=== PATIENT | female | born 1955 | race Caucasian/White ===

== ENCOUNTER 2021-02-26 13:26 | Observation (INO) | payer MEDICARE ==
[~2021-02-26] VITALS: Ht 159.4 cm; Wt 98.5 kg
[2021-02-26] VITALS (10 sets, daily range): BP systolic 129–146; BP diastolic 64–82
[~2021-02-26 13:26] MED LIST: ACHD5005 PO; APPLE CIDER VINEGAR PO; ASP81CT PO; BUTA-234 PO; CALC-20 PO; CHLOR PO; CHOL10002 PO; CLR7.5T PO; MUPI22OI TP; OMEP40CA36 PO; TOPI50TA2 PO
--- OUTSIDE RECORDS SUMMARY | 2021-02-26 13:31 | XMS REPORT ---
Author Author Mala Salmeron [facility] Address [address] [place] [id number] Care Team Providers Care Antique Repairer Name Role Phone Ellis Salmeron PCP Cecy Adame PreferredProvider Allergies and Adverse Reactions Name Reaction Notes erythromycin ethylsuccinate vomiting Plan of Treatment Planned Activity Comments Planned Date Planned Time Plan/Goal ABDOMEN ONE VIEW 05/09/2021 12:00 AM Medications Active Name Start Date Estimated Completion Date SIG Co mments Calcium 600 + D(3) 600 mg calcium- 200 unit oral capsule take 2 capsules by oral route daily Vitamin D3 5,000 unit oral tablet take 1 tablet by oral route daily Claritin-D 24 Hour 10-240 mg oral tablet extended release 24 hr take 1 tablet by oral route once daily magnesium 200 mg oral tablet take 2 table ts by oral route daily Flonase Allergy Relief 50 mcg/actuation nasal spray,suspension spray 1 - 2 sprays (50 - 100 mcg) in each nostril by intranasal route once daily as needed Fish, Flax andBorage Oil(Prim) 400-400-200 mg oral capsule take 1 capsule by oral route daily CoQ-10 100 mg oral capsule take 1 capsule by oral route daily hydroxyzine pamoate 25 mg oral capsule 10/18/2018 TAKE 1 TO 2 CAPSULES BY MOUTH NEEDED FOR SEVERE STRESS/HEADACHE Zinc one tablet by oral route onc e daily Vitamin C 500 mg oral tablet take 1 table t by oral route daily triamcinolone acetonide 0.025 % topical cream 10/25/2019 apply a thin layer to the affected area(s) by topical route at bedtime Pacerone 200 mg oral tablet take 1 tablet (200 mg) by oral route 2 times per day Xarelto 20 mg oral tablet take 1 tablet ( 20 mg) by oral route once daily pravastatin 10 mg oral tablet 01/22/2021 01/17/2022 ta ke 1 tablet (10 mg) by oral route once daily at bedtime for 90 days Name Start Date Expiration Date SIG Comments Adult Low Dose Aspirin 81 mg oral tablet,delayed release (DR/EC) take 1 tablet (81 mg) by oral route once daily Aller-Chlor 4 mg oral tablet nikolai e 1 tablet (4 mg) by oral route every 6 hours as needed chromium picolinate 200 mcg oral tablet t armida 1 tablet by oral route daily clorazepate dipotassium 7.5 mg oral tablet 03/11/2017 018 take 1-2 tablets as needed Vistaril 25 mg oral capsule 01/11/2018 02/10/2018 Take 1-2 tabs as needed for severe stress/headache potassium one tablet by oral route onc e daily cephalexin 500 mg oral capsule 12/15/2019 12/22/2019 t armida 1 capsule (500 mg) by oral route every 12 hours for 7 days sotalol 80 mg oral tablet take 1 tablet (80 mg) by oral route 2 times per day hydroxyzine HCl 25 mg tablet 07/19/2020 09/02/2020 NIKOLAI E 1 TO 2 TABLETS BY MOUTH NEEDED FOR SEVERE STRESS/HEADACHE Discontinued Name Start Date Discontinued Date SIG Comments butalbital-acetaminophen 50-325 mg oral tablet take 1 - 2 tablets by oral route every 4 hours as needed not to exceed 6 tablets per 24hrs coconut oil 1,000 mg oral capsule 07/29/2017 take 1 capsule by oral route daily Lipochol Plus 0.5 mg oral tablet 10/25/2019 take 1 t ablet by oral route daily flaxseed oral powder 01/05/2020 1300mg QD hydroxyzine HCl 25 mg oral tablet 02/28/2019 10/25/2019 TAKE 1 TO 2 TABLETS BY MOUTH NEEDED FOR SEVERE STRESS/HEADACHE topiramate 50 mg oral tablet 12/07/2019 12/22/2019 nikolai e 1 tablet (50 mg) by oral route 2 times per day for 90 days "may have caused kidney stone" Problem List Description Status Onset Lipoma Active 07/17/2017 Lipoma Active 07/17/2017 Colon Cancer Screening Active 06/08/2018 Hypercholesteremia Active 09/24/2018 Thyroid cyst Active 09/24/2018 Vital Signs Date Time BP-Sys(mm[Hg] BP-Torie(mm[Hg]) HR(bpm) RR(rpm) Temp WT HT HC BMI BSA BMI Percentile O2 Sat(%) 10/25/2020 9:16:00 AM 124 mm[Hg] 80 mm[Hg] 82 {beats}/min 18 rpm 97.9 F 216 lbs 67 in 33.83 kg/m2 2.1521 m2 97 % 05/21/2020 8:25:00 AM 132 mm[Hg] 80 mm[Hg] 65 {beats}/min 20 rpm 97.9 F 213 lbs 67 in 33.36 kg/m2 2.14 m2 98 % 05/09/2020 9:53:00 AM 124 mm[Hg] 98 mm[Hg] 64 {beats}/min 18 rpm 97.9 F 211 lbs 67 in 33.0469 kg/m2 2.1271 m2 98 % 01/05/2020 1:23:00 PM 110 mm[Hg] 72 mm[Hg] 63 {beats}/min 18 rpm 97.9 F 214 lbs 67 in 33.52 kg/m2 2.14 m2 98 % 12/22/2019 8:59:00 AM 130 mm[Hg] 68 mm[Hg] 60 {beats}/min 16 rpm 97.7 F 211 lbs 67 in 33.0469 kg/m2 2.1271 m2 98 % 10/25/2019 8:43:00 AM 120 mm[Hg] 78 mm[Hg] 125 {beats}/min 18 rpm 97.9 F 212 lbs 67 in 33.20 kg/m2 2.13 m2 98 % 09/21/2018 9:03:00 AM 142 mm[Hg] 94 mm[Hg] 89 {beats}/min 18 rpm 97.8 F 198.5 lbs 67 in 31.0892 kg/m2 2.0631 m2 98 % 08/10/2018 8:37:00 AM 138 mm[Hg] 98 mm[Hg] 90 {beats}/min 18 rpm 97.5 F 199 lbs 67 in 31.17 kg/m2 2.07 m2 98 % 06/08/2018 11:01:00 AM 134 mm[Hg] 67 mm[Hg] 70 {beats}/min 20 rpm 97.8 F 206 lbs 67 in 32.2638 kg/m2 2.1017 m2 05/18/2018 9:27:00 AM 132 mm[Hg] 90 mm[Hg] 92 {beats}/min 16 rpm 97.9 F 203.375 lbs 67 in 31.85 kg/m2 2.09 m2 99 % 11/11/2017 3:52:00 PM 118 mm[Hg] 82 mm[Hg] 82 {beats}/min 16 rpm 98.1 F 190.25 lbs 67 in 29.7971 kg/m2 2.0198 m2 98 % 07/29/2017 9:32:00 AM 132 mm[Hg] 80 mm[Hg] 94 {beats}/min 18 rpm 98.1 F 185.375 lbs 67 in 29.03 kg/m2 1.99 m2 99 % 07/17/2017 9:40:00 AM 116 mm[Hg] 67 mm[Hg] 79 {beats}/min 20 rpm 97.8 F 186 lbs 67 in 29.1314 kg/m2 1.9971 m2 07/01/2017 1:09:00 PM 120 mm[Hg] 72 mm[Hg] 78 {beats}/min 18 rpm 98.1 F 188.125 lbs 67 in 29.46 kg/m2 2.01 m2 99 % 03/31/2017 4:04:00 PM 122 mm[Hg] 68 mm[Hg] 80 {beats}/min 16 rpm 98.8 F 199.25 lbs 67 in 31.2066 kg/m2 2.067 m2 98 % 03/11/2017 8:20:00 AM 142 mm[Hg] 98 mm[Hg] 89 {beats}/min 18 rpm 99.3 F 196.5 lbs 67 in 30.7759 kg/m2 2.05 m2 98 % Social History Name Description Comments Grown Children retired No Alcohol Use Tobacco Never smoker History of Procedures Date Ordered Description Order Status 03/11/2017 12:00 AM COMPLETE CBC W/AUTO DIFF WBC Returned 03/11/2017 12:00 AM ASSAY OF FREE THYROXINE Returned 03/11/2017 12:00 AM US EXAM OF HEAD AND NECK Returned 04/27/2017 12:00 AM COMPREHEN METABOLIC PANEL Returned 04/27/2017 12:00 AM ASSAY THYROID STIM HORMONE Returned 04/27/2017 12:00 AM FREE ASSAY (FT-3) Returned 04/27/2017 12:00 AM VITAMIN D 25 HYDROXY Returned 07/01/2017 12:00 AM RADEX ANKLE COMPLETE MINIMUM 3 VIEWS Rev iewed 07/29/2017 12:00 AM MAMMOGRAPHY BILATERAL DX DIGITAL Returne d 07/29/2017 12:00 AM LIPID PANEL Returned 11/11/2017 12:00 AM US XTR NON-VASC LMTD Returned 05/13/2018 12:00 AM COMPLETE CBC W/AUTO DIFF WBC Returned 05/13/2018 12:00 AM LIPID PANEL Returned 05/13/2018 12:00 AM COMPREHEN METABOLIC PANEL Returned 05/18/2018 12:00 AM Consult/Referral Reviewed 08/10/2018 12:00 AM Mammogram, screening, bilateral Returned 01/24/2019 12:00 AM COMPLETE CBC W/AUTO DIFF WBC Reviewed 01/24/2019 12:00 AM LIPID PANEL Reviewed 01/24/2019 12:00 AM ASSAY THYROID STIM HORMONE Reviewed 01/24/2019 12:00 AM ASSAY OF TOTAL THYROXINE Reviewed 01/24/2019 12:00 AM COMPREHEN METABOLIC PANEL Reviewed 10/20/2019 12:00 AM LIPID PANEL Reviewed 10/20/2019 12:00 AM METABOLIC PANEL TOTAL CA Reviewed 10/21/2019 12:00 AM ROUTINE VENIPUNCTURE Reviewed 10/25/2019 12:00 AM BREAST TOMOSYNTHESIS BI Reviewed 12/29/2019 12:00 AM US EXAM ABDO BACK WALL COMP Reviewed 12/22/2019 12:00 AM [facility] - flu vaccine administratio n Reviewed 12/22/2019 12:00 AM INFLUENZA VAC 4 VALENT PRSRV FREE 3 YRS PLUS IM Reviewed 01/05/2020 12:00 AM URINALYSIS AUTO W/SCOPE Reviewed 04/30/2020 12:00 AM X-RAY EXAM OF ABDOMEN Reviewed 05/17/2020 12:00 AM COMPLETE CBC W/AUTO DIFF WBC Reviewed 05/17/2020 12:00 AM LIPID PANEL Reviewed 05/17/2020 12:00 AM ASSAY THYROID STIM HORMONE Reviewed 05/17/2020 12:00 AM ASSAY OF TOTAL THYROXINE Reviewed 05/17/2020 12:00 AM COMPREHEN METABOLIC PANEL Reviewed 05/17/2020 12:00 AM VITAMIN D 25 HYDROXY Reviewed 05/25/2020 12:00 AM Moderna Covid-19 Vaccine Reviewed 06/22/2020 12:00 AM Moderna Covid-19 Vaccine Reviewed 10/22/2020 12:00 AM BREAST TOMOSYNTHESIS BI Reviewed Results Summary Date and Description Results 01/25/2019 6:50 AM WBC 4.7 RBC 4.41 HGB 14.10 g /dLHCT 44.0 %MCV 100.0 fLMCH 32.0 pgMCHC 32.0 g/dLRDW SD 47 fLRDW CV 12.70 %MPV 9.10 fLPLT 262 x10E3/uLNRBC# 0.00 NRBC% 0.0 %NEUT 56.8 %LYMP 30.9 %MONO 8.5 %EOS 2.5 %BASO 1.1 #NEUT 2.69 #LYMP 1.46 #MONO 0.40 #EOS 0.12 #BASO 0.05 MANUAL DIFF NOT IND TSH 1.63 TRIGLYCERIDES 122 CHOLESTEROL 214.0 mg/dLHDL 60 TOT CHOL/HDL 3.6 LDL (CALC) 130 GLUCOSE 92 SODIUM 146 POTASSIUM 4.1 CHLORIDE 113.0 mmol/LCO2 24 BUN 27.0 mg/dLCREATININE 1.080 mg/dLSGOT/AST 16 SGPT/ALT 25 ALK PHOS 79 TOTAL PROTEIN 7.2 ALBUMIN 4.5 TOTAL BILI 0.4 CALCIUM 9.80 mg/dLAGE 64 GFR NonAA 51 GFR AA 62 eGFR 51 mL/min/1.73m²eGFR AA* >60 mL/min/1.73m²T4 5.8 10/21/2019 8:05 AM TRIGLYCERIDES 147 CHOLESTERO L 195.0 mg/dLHDL 62 TOT CHOL/HDL 3.1 LDL (CALC) 104 GLUCOSE 96 SODIUM 148 POTASSIUM 4.1 CHLORIDE 114.0 mmol/LCO2 25 BUN 23.0 mg/dLCREATININE 1.080 mg/dLCALCIUM 9.60 mg/dLAGE 64 GFR NonAA 51 GFR AA 62 eGFR 51 mL/min/1.73m²eGFR AA* >60 mL/min/1.73m² 01/05/2020 4:46 PM COLOR Yellow CLARITY Clear S PEC GRAV >1.030 pH 6.0 PROTEIN 10 GLUCOSE Normal KETONE Negative BILIRUBIN Negative BLOOD Negative NITRITE Negative LEUK SCREEN 25 RBC/HPF NEGATIVE WBC/HPF 0-5 WBC CLUMP/HPF None Seen BACTERIA/HPF None Seen BUDDING YEAST/HPF None Seen HYPHAE YEAST/HPF None Seen SQUAMOUS EPI/LPF Few TRANSITION EPI/HPF None Seen RENAL EPI/HPF None Seen MUCOUS/LPF None Seen CULT SET UP? NO 05/18/2020 8:25 AM WBC 4.8 RBC 4.66 HGB 15.0 g/ dLHCT 46.50 %MCV 100.0 fLMCH 32.20 pgMCHC 32.30 g/dLRDW SD 48 %RDW CV 13.10 %MPV 10.20 fLPLT 253 x10E3/uLNRBC# 0.00 NRBC% 0.0 %NEUT 65.1 %LYMP 23.5 %MONO 8.5 %EOS 1.9 %BASO 0.8 #NEUT 3.12 #LYMP 1.13 #MONO 0.41 #EOS 0.09 #BASO 0.04 MANUAL DIFF NOT IND GLUCOSE 101 SODIUM 142 POTASSIUM 4.3 CHLORIDE 108.0 mmol/LCO2 27 BUN 27.0 mg/dLCREATININE 1.0 mg/dLSGOT/AST 34 SGPT/ALT 39 ALK PHOS 80 TOTAL PROTEIN 7.4 ALBUMIN 4.5 TOTAL BILI 0.6 CALCIUM 10.0 mg/dLAGE 65 GFR NonAA 56 GFR AA 68 eGFR 56 mL/min/1.73m²eGFR AA* >60 mL/min/1.73m²TRIGLYCERIDES 148 CHOLESTEROL 195.0 mg/dLHDL 61 TOT CHOL/HDL 3.2 LDL (CALC) 104 VITAMIN D 84.9 T4 10.5 TSH 1.29 History Of Immunizations Name Date Admin Mfg Name Mfg Code Trade Name Lot# Route Inj Vis Given Vis Pub CVX Influenza 12/22/2019 GlaxoSmithKline SKB Flulaval quadrivalent N [id number] Intramuscular Right Deltoid 12/22/2019 03/09/2021 158 Covid-19 05/25/2020 [employer] MOD Moderna COVID-19 Vaccin e [id number] Intramuscular Right Deltoid 05/25/2020 02/07/2020 207 Covid-19 06/22/2020 [employer] MOD Moderna COVID-19 Vaccin e [id number] Intramuscular Left Deltoid 06/22/2020 02/07/2020 207 History of Past Illness Name Date of Onset Comments Migraine Thyroid cyst Hypercholesteremia Lipoma 07/17/2017 Colon Cancer Screening 06/08/2018 Hypercholesteremia 09/24/2018 Thyroid cyst 09/24/2018 Osteoporosis Mar 11 2017 8:36AM Tension headache, chronic Mar 11 2017 8:36AM Ocular migraine Mar 11 2017 8:36AM Acute upper respiratory infection, unspecified Mar 11 2017 8:36AM Other viral agents as the cause of diseases classified elsewhere Mar 11 2017 8:36AM Thyroid nodule Mar 11 2017 8:36AM Thyroid nodule Mar 31 2017 4:06PM Left ankle pain Jul 01 2017 1:15PM Mass of ankle, left Jul 01 2017 1:15PM Lipoma Jul 17 2017 9:41AM Screening for breast cancer Jul 29 2017 9:35AM Thyroid nodule Jul 29 2017 9:35AM Hyperlipemia Jul 29 2017 9:35AM Lipoma Jul 29 2017 9:35AM Hyperlipemia Nov 11 2017 3:57PM Lipoma Nov 11 2017 3:57PM Hyperlipemia May 13 2018 1:39PM CKD (chronic kidney disease) May 13 2018 1:39PM Routine health maintenance May 13 2018 1:39PM Hyperlipemia May 18 2018 9:30AM CKD (chronic kidney disease) May 18 2018 9:30AM Migraine May 18 2018 9:30AM Osteoporosis May 18 2018 9:30AM Colon cancer screening Jun 08 2018 11:08AM Breast cancer screening Aug 10 2018 8:40AM Migraines Aug 10 2018 8:40AM Thyroid nodule Aug 10 2018 8:40AM CKD (chronic kidney disease) Aug 10 2018 8:40AM Hyperlipemia Aug 10 2018 8:40AM Thyroid cyst Sep 21 2018 9:11AM Migraine Sep 21 2018 9:11AM Hypercholesteremia Sep 21 2018 9:11AM Hyperlipemia Jan 24 2019 1:32PM CKD (chronic kidney disease) Jan 24 2019 1:32PM Routine health maintenance Jan 24 2019 1:32PM Thyroid cyst Jan 24 2019 1:32PM Hypercholesteremia Oct 20 2019 11:53AM Visit for screening mammogram Oct 25 2019 8:45AM Vaginal itching Oct 25 2019 8:45AM Kidney stone Dec 15 2019 9:24AM Flu Vaccine Dec 22 2019 9:46AM Atrial fibrillation with rapid ventricular response Dec 21 9:01AM Nephrolithiasis Dec 22 2019 9:01AM Kidney Stones Jan 05 2020 1:27PM Kidney stone Jan 11 2020 12:26PM Kidney Stones May 09 2020 9:53AM Hyperlipemia May 17 2020 8:35AM CKD (chronic kidney disease) May 17 2020 8:35AM Routine health maintenance May 17 2020 8:35AM Thyroid cyst May 17 2020 8:35AM Vitamin D deficiency May 17 2020 8:35AM Kidney stone May 17 2020 4:05PM Thyroid nodule May 21 2020 8:27AM CKD (chronic kidney disease) May 21 2020 8:27AM Hyperlipemia May 21 2020 8:27AM Encounter for administration of COVID-19 vaccine May 25 2020 3:28PM Encounter for administration of COVID-19 vaccine Jun 22 2020 2:44PM Screening for malignant neoplasm of breast Oct 22 2020 12:40 PM Visit for screening mammogram Oct 25 2020 9:20AM Payers Insurance Name Company Name Plan Name Plan Number Policy Number Jorge cy Group Number Start Date Medicare RHC Medicare RHC [id number] N/ A AAR AAR [id number] N/A Medicare Part A Medicare - Lab/Xray [id number] N/A Medicare Part B Medicare Of [place] [id number] N/A BCBS [employer] [place] [id number] N/ A BCBS [facility] [id number] N/ A BCBS [employer] [facility] [id number] N/ A History of Encounters Visit Date Visit Type Provider 10/25/2020 Office visit Ellis Salmeron DO 06/22/2020 Nurse visit Ellis Salmeron DO 05/25/2020 Nurse visit Ellis Salmeron DO 05/21/2020 Office visit Ellis Salmeron DO 05/09/2020 Office visit Eleuterio Powell MD 02/20/2020 Laboratory Kira KHOURY RN 01/05/2020 Office visit SAMANTHA HANNA BOX MACHINE OPERATOR 12/26/2019 Laboratory Guera KHOURY RN 12/22/2019 Office visit Ellis Salmeron DO 12/15/2019 Hospital Cristina Goodrich MD 12/15/2019 Hospital SAMANTHA HANNA BOX MACHINE OPERATOR 12/14/2019 Hospital Chilango Chavez MD 10/25/2019 Office visit Ellis Salmeron DO 10/21/2019 Laboratory Guera KHOURY RN 09/21/2018 Office visit Ellis Salmeron DO 08/10/[address] Cecy rodriguez DO 06/14/2018 Surgery Juni Vanegas DO 06/08/2018 Office visit Juni Vanegas DO 05/18/[address] Cecy rodriguez DO 11/11/[address] Cecy rodriguez DO 07/29/[address] Cecy rodriguez DO 07/17/2017 Procedures Juni Vanegas DO 07/01/2017 Office visit Sukhwinder Neves APR N 03/31/2017 Office visit Elvie Patton MD 03/11/2017 Office visit Elvie Patton MD 07/08/2012 [facility] Juni Vanegas DO 07/02/2012 Office visit Juni Vanegas DO 07/15/2010 [facility] Chilango Chavez MD
--- OUTSIDE RECORDS SUMMARY | 2021-02-26 13:31 | XMS REPORT ---
Author Mala Becerra Organization [facility] Address [address] [place] [id number] Care Team Providers Care Screen Door Maker Name Role Phone Guera Delvalle PCP Cecy Adame PreferredProvider Allergies and Adverse [...] once daily at bedtime for 90 days Augmentin 875-125 mg oral tablet 02/23/2021 03/02/2021 take 1 tablet by oral route every 12 hours for 7 days Medrol (Eliseo) 4 mg oral tablets,dose pack 02/23/2021 021 take by oral route as directed per package instructions for 6 days Name Start Date Expiration Date SIG [...] Lipoma Active 07/17/2017 Lipoma Active 07/17/2017 Colon cancer screening Active 06/08/2018 Hypercholesteremia Active 09/24/2018 Thyroid cyst Active 09/24/2018 Vital Signs Date Time BP-Sys(mm[Hg] BP-Torie(mm[Hg]) HR(bpm) RR(rpm) Temp WT HT HC BMI BSA BMI Percentile O2 Sat(%) 02/23/2021 8:14:00 AM 122 mm[Hg] 70 mm[Hg] 87 {beats}/min 20 rpm 97.9 F 223.25 lbs 67 in 34.9655 kg/m2 2.1879 m2 99 % 10/25/2020 9:16:00 AM 124 mm[Hg] 80 mm[Hg] 82 {beats}/min 18 rpm 97.9 F 216 lbs 67 in 33.83 kg/m2 2.15 m2 97 % 05/21/2020 8:25:00 AM 132 mm[Hg] 80 mm[Hg] 65 {beats}/min 20 rpm 97.9 F 213 lbs 67 in 33.3602 kg/m2 2.1371 m2 98 % 05/09/2020 9:53:00 AM 124 mm[Hg] 98 mm[Hg] 64 {beats}/min 18 rpm 97.9 F 211 lbs 67 in 33.05 kg/m2 2.13 m2 98 % 01/05/2020 1:23:00 PM 110 mm[Hg] 72 mm[Hg] 63 {beats}/min 18 rpm 97.9 F 214 lbs 67 in 33.5168 kg/m2 2.1421 m2 98 % 12/22/2019 8:59:00 AM 130 mm[Hg] 68 mm[Hg] 60 {beats}/min 16 rpm 97.7 F 211 lbs 67 in 33.05 kg/m2 2.13 m2 98 % 10/25/2019 8:43:00 AM 120 mm[Hg] 78 mm[Hg] 125 {beats}/min 18 rpm 97.9 F 212 lbs 67 in 33.2036 kg/m2 2.1321 m2 98 % 09/21/2018 9:03:00 AM 142 mm[Hg] 94 mm[Hg] 89 {beats}/min 18 rpm 97.8 F 198.5 lbs 67 in 31.09 kg/m2 2.06 m2 98 % 08/10/2018 8:37:00 AM 138 mm[Hg] 98 mm[Hg] 90 {beats}/min 18 rpm 97.5 F 199 lbs 67 in 31.1675 kg/m2 2.0657 m2 98 % 06/08/2018 11:01:00 AM 134 mm[Hg] 67 mm[Hg] 70 {beats}/min 20 rpm 97.8 F 206 lbs 67 in 32.26 kg/m2 2.10 m2 05/18/2018 9:27:00 AM 132 mm[Hg] 90 mm[Hg] 92 {beats}/min 16 rpm 97.9 F 203.375 lbs 67 in 31.8527 kg/m2 2.0883 m2 99 % 11/11/2017 3:52:00 PM 118 mm[Hg] 82 mm[Hg] 82 {beats}/min 16 rpm 98.1 F 190.25 lbs 67 in 29.80 kg/m2 2.02 m2 98 % 07/29/2017 9:32:00 AM 132 mm[Hg] 80 mm[Hg] 94 {beats}/min 18 rpm 98.1 F 185.375 lbs 67 in 29.0335 kg/m2 1.9937 m2 99 % 07/17/2017 9:40:00 AM 116 mm[Hg] 67 mm[Hg] 79 {beats}/min 20 rpm 97.8 F 186 lbs 67 in 29.13 kg/m2 2.00 m2 07/01/2017 1:09:00 PM 120 mm[Hg] 72 mm[Hg] 78 {beats}/min 18 rpm 98.1 F 188.125 lbs 67 in 29.4642 kg/m2 2.0084 m2 99 % 03/31/2017 4:04:00 PM 122 mm[Hg] 68 mm[Hg] 80 {beats}/min 16 rpm 98.8 F 199.25 lbs 67 in 31.21 kg/m2 2.07 m2 98 % 03/11/2017 8:20:00 AM 142 mm[Hg] 98 mm[Hg] 89 {beats}/min 18 rpm 99.3 F 196.5 lbs 67 in 30.7759 kg/m2 2.0527 m2 98 % Social History Name Description [...] BACK WALL COMP Reviewed 12/22/2019 12:00 AM [facility] MEDICARE - flu vaccine administratio n Reviewed [...] Right Deltoid 12/22/2019 03/09/2021 158 Covid-19 05/25/2020 [employer] MOD Moderna COVID-19 Vaccin e [id number] Intramuscular Right Deltoid 05/25/2020 02/07/2020 207 Covid-19 06/22/2020 [employer] MELLY Humphries COVID-19 Vaccin e [id number] Intramuscular Left Deltoid 06/22/2020 02/07/2020 207 History of Past Illness Name Date of Onset Comments Migraine Thyroid cyst Hypercholesteremia Lipoma 07/17/2017 Colon cancer screening 06/08/2018 Hypercholesteremia 09/24/2018 Thyroid cyst 09/24/2018 Osteoporosis [...] for screening mammogram Oct 25 2020 9:20AM Sinusitis Feb 23 2021 8:22AM Facial swelling Feb 23 2021 8:22AM Payers Insurance Name Company Name Plan Name Plan Number Policy Number Jorge cy Group Number Start Date Medicare RHC Medicare RHC [id number] N/ A AAR AAR [id number] N/A Medicare Part A Medicare - Lab/Xray [id number] N/A Medicare Part B Medicare Of [place] [id number] N/A BCBS [facility]cbs [facility] [id number] N/ A BCBS [employer]cbs [facility] [id number] N/ A BCBS [employer] [facility] [id number] N/ A History of Encounters Visit Date Visit Type Provider 02/23/2021 Office visit Guera KHOURY RN 10/25/2020 Office visit Ellis Salmeron DO 06/22/2020 Nurse visit Ellis Salmeron DO 05/25/2020 Nurse visit Ellis Salmeron DO 05/21/2020 Office visit Ellis Salmeron DO 05/09/2020 Office visit Eleuterio Powell MD 02/20/2020 Laboratory Kira KHOURY RN 01/05/2020 Office visit SAMANTHA HANNA ELECTRICAL ACCESSORIES II ASSEMBLER 12/26/2019 Laboratory Guera KHOURY RN 12/22/2019 Office visit Ellis Salmeron DO 12/15/2019 Hospital Cristina Goodrich MD 12/15/2019 [facility] SAMANTHA HANNA [employer] ASSEMBLER 12/14/2019 [facility] Chilango Chavez MD 10/25/2019 Office visit [...] 03/11/2017 Office visit Elvie Patton MD 07/08/2012 [facility] Juni Vanegas DO 07/02/2012 Office visit Juni Vanegas DO 07/15/2010 [facility] Chilango Chavez MD
[2021-02-26] MEDS ORDERED: D5 1/2 NS 1000 ML IV SOLUTION 1,000 ML IV SCH (14:00)
[2021-02-26] MEDS ORDERED: CATHETER FLUSH 10 ML SYR IV PRN (14:00)
[2021-02-26 14:26] LABS: BASOPHILS % (AUTO) 0 % (0-10); EOSINOPHILS % (AUTO) 0 % (0-10); HEMATOCRIT 44 % (35-52); HEMOGLOBIN 14.3 g/dL (11.5-16.0); LYMPHOCYTES # (AUTO) 1.3 10^3/uL (1.0-4.0); LYMPHOCYTES % (AUTO) 11 % (12-44); MEAN CORPUSCULAR HEMOGLOBIN 33 pg (25-34); MEAN CORPUSCULAR HGB CONC 32 g/dL (32-36); MEAN CORPUSCULAR VOLUME 101 fL (80-99); MEAN PLATELET VOLUME 9.4 fL (9.0-12.2); MONOCYTES # (AUTO) 1.1 10^3/uL (0.0-1.0); MONOCYTES % (AUTO) 9 % (0-12); NEUTROPHILS # (AUTO) 9.6 10^3/uL (1.8-7.8); NEUTROPHILS % (AUTO) 80 % (42-75); PLATELET COUNT 270 10^3/uL (130-400)
[2021-02-26 14:40] LABS: POTASSIUM 3.8 MMOL/L (3.6-5.0)
[2021-02-26 14:41] LABS: CALCIUM 9.5 MG/DL (8.5-10.1)
[2021-02-26 14:45] LABS: CREATININE SERUM 0.99 MG/DL (0.60-1.30)
[2021-02-26] MEDS ORDERED: VANCOMYCIN 1500 MG/NS 500 ML IVPB IV NR ×2 (14:45)
[2021-02-26] MEDS ORDERED: LACTATED RINGERS 1,000 ML IV PRN (15:30)
[2021-02-26] MEDS ORDERED: ZINC50TA58 PO (15:55)
[2021-02-26] MEDS ORDERED: CALC600T91 PO (15:55)
[2021-02-26] MEDS ORDERED: HYDR-700 PO (15:55)
[2021-02-26] MEDS ORDERED: AMIO200T65 PO (15:55)
[2021-02-26] MEDS ORDERED: LORA1TAB59 PO (15:55)
[2021-02-26] MEDS ORDERED: CHOL20003 PO (15:55)
[2021-02-26] MEDS ORDERED: ASCO500T17 PO (15:55)
[2021-02-26] MEDS ORDERED: UBID100C17 PO (15:55)
[2021-02-26] MEDS ORDERED: PRAV10TA PO (15:55)
[2021-02-26] MEDS ORDERED: RIVA20TA PO (15:55)
[2021-02-26] MEDS ORDERED: FLUT9.9S NSEACH (15:55)
[2021-02-26] MEDS ORDERED: MAGN400T39 PO (15:55)
[2021-02-26] MEDS ORDERED: proPOfol 200 MG/20 ML (DIPRIVAN) VIAL IV ONE ×2 (16:05→17:28)
[2021-02-26] MEDS ORDERED: ONDANSETRON 4 MG/2 ML (SDV) Z0FRAN ONE (16:05)
[2021-02-26] MEDS ORDERED: NEOSTIGMINE 3 MG/3 ML VIAL ONE (16:05)
[2021-02-26] MEDS ORDERED: LIDOCAINE PF 2% 5 ML (XYLOCAINE) VIAL ONE (16:05)
[2021-02-26] MEDS ORDERED: GLYCOPYRROLATE 0.2 MG/ML (ROBINUL) 2 ML VIAL ONE (16:05)
[2021-02-26] MEDS ORDERED: ROCURONIUM 50 MG/5 ML (ZEMURON) VIAL IV ONE (16:05)
[2021-02-26] MEDS ORDERED: MIDAZOLAM 2 MG/2 ML (VERSED) VIAL ONE (16:06)
[2021-02-26] MEDS ORDERED: fentaNYL INJ 100 MCG/2 ML AMP ONE (16:06)
[2021-02-26] MEDS ORDERED: LIDOCAINE/EPI 1%-1:200,000 (XYLOCAINE) 30 ML VIAL ONE (17:09)
--- NOTE | 2021-02-26 17:17 | Progress Note-Pre Operative ---
Pre-Operative Progress Note H&P Reviewed The H&P was reviewed, patient examined and no changes noted. Date Seen by Provider: Feb 26, 2021 Time Seen by Provider: 17:00 Date H&P Reviewed: Feb 26, 2021 Time H&P Reviewed: 17:00 Pre-Operative Diagnosis: Nasospetal abscess MALATHI MONTEMAYOR MD Feb 26, 2021 17:17
--- NOTE | 2021-02-26 17:18 | Progress Note-Post Operative ---
Post-Operative Progess Note Surgeon (s)/Dye Range Tender (s) Surgeon MALATHI MONTEMAYOR MD Dye Range Tender n/a Pre-Operative Diagnosis Nasospetal abscess Post-Operative Diagnosis same Post-Op Procedure Note Date of Procedure: Feb 26, 2021 Name of Procedure Performed: Incision/Drainage of Nasospetal abscess Description & Findings Description and Findings: n/a Anesthesia Type get Estimated Blood Loss minimal Packing none. Specimen(s) collected/removed cultures to lab from abscess MALATHI MONTEMAYOR MD Feb 26, 2021 17:18
[2021-02-26] MEDS ORDERED: PHENYLEPHRINE 0.5% NASAL SPR (NEO-SYNEPHRINE) REG ONE (17:27)
[2021-02-26] MEDS ORDERED: BSS 15 ML ONE (17:33)
[2021-02-26] MEDS ORDERED: SEVOFLURANE (ULTANE) 15 ML INHAL SOLN ONE (17:37)
[2021-02-26] MEDS ORDERED: ONDANSETRON 4 MG/2 ML (SDV) Z0FRAN IVP PRN (17:45)
[2021-02-26] MEDS ORDERED: PROMETHAZINE INJ 25 MG/ML (PHENERGAN) AMP IVP ONE (17:45)
[2021-02-26] MEDS ORDERED: fentaNYL INJ 100 MCG/2 ML AMP IVP ONE (17:45)
[2021-02-26] MEDS ORDERED: MEPERIDINE (DEMEROL) INJ 50 MG/ML IVP ONE (17:45)
[2021-02-26] MEDS ORDERED: morphine INJ 10 MG/ML 1ML (SYR OR VIAL) IVP ONE (17:45)
[2021-02-26] MEDS ORDERED: HYDROmorphone 2 MG/ML VIAL (DILAUDID) IV ONE (17:45)
--- NOTE | 2021-02-26 17:45 | Anesthesia-General Post-Op ---
General Patient Condition Mental Status/LOC: Same as Preop Cardiovascular: Satisfactory Nausea/Vomiting: Absent Respiratory: Satisfactory Pain: Controlled Complications: Absent Post Op Complications Complications None Follow Up Care/Instructions Patient Instructions None needed. Anesthesia/Patient Condition Patient Condition Patient is doing well, no complaints, stable vital signs, no apparent adverse anesthesia problems. No complications reported per nursing. THEA DIOP CRNA Feb 26, 2021 17:45
[2021-02-26] MEDS ORDERED: HYDROcodone/APAP 5 MG/325 MG (LORTAB) TAB PO PRN (18:00)
[2021-02-26] MEDS ORDERED: hydrOXYzine (VISTARIL/ATARAX) 25 MG capsule/tablet PO PRN (21:30)
[2021-02-26] MEDS ORDERED: FLUTICASONE NASAL SPRAY (FLONASE) 16 GM BTL NS PRN (21:30)
[2021-02-26] MEDS: MUPIROCIN 2% OINT 22 GM (BACTROBAN) TUBE TOP SCH (22:03)
[2021-02-26] MEDS: SIMvastatin 10 MG (ZOCOR) TAB PO SCH (22:03)
[2021-02-26] MEDS ORDERED: LORATADINE (CLARITIN) 10 MG TAB PO PRN (22:15)
[2021-02-26] MEDS ORDERED: PSEUDOEPHEDRINE HCL 30 MG (SUDAFED) TAB PO PRN (22:30)
[2021-02-27] MEDS: VANCOMYCIN 1250 MG/NS 250 ML IVPB IV SCH ×4 (04:07→16:45)
--- NOTE | 2021-02-27 05:51 | Progress Note ---
Standard Progress Note Progress Notes/Assess & Plan Date Seen by a Provider: Feb 27, 2021 Time Seen by a Provider: 05:30 Progress/Assessment & Plan ENT-Sherice less pain/tenderness culture pending cont current antibiotics minimal drainage Nose-less swollen/tender diet as noris may restrt her xarelto tonight plan on 24 more hours of IV antibiotics and then home on oral antibiotics MALATHI MONTEMAYOR MD Feb 27, 2021 05:51
[2021-02-27 08:00] VITALS: BP 134/74
[2021-02-27] MEDS: MUPIROCIN 2% OINT 22 GM (BACTROBAN) TUBE TOP SCH ×2 (08:25→21:12)
[2021-02-27] MEDS: AMIODARONE 200 MG (CORDARONE) TAB PO SCH (08:25)
[2021-02-27] MEDS: CALCIUM CARBONATE 600 MG (CALCARB) TAB PO SCH (08:25)
[2021-02-27] MEDS: ACETAMINOPHEN 325 MG TABLET PO PRN ×3 (08:30→21:12)
--- NOTE | 2021-02-27 09:13 | Anesthesia-General Post-Op ---
General Patient Condition Mental Status/LOC: Same as Preop Cardiovascular: Satisfactory Nausea/Vomiting: Absent Respiratory: Satisfactory Pain: Controlled Complications: Absent Post Op Complications Complications None Follow Up Care/Instructions Patient Instructions None needed. Anesthesia/Patient Condition Patient Condition Patient is doing well, no complaints, stable vital signs, no apparent adverse anesthesia problems. No complications reported per nursing. BOSTON GARNER CRNA Feb 27, 2021 09:13
[2021-02-27 16:00] VITALS: BP 134/73
[2021-02-27] MEDS ORDERED: ASCORBIC ACID (VIT C) 500 MG TABLET PO SCH (17:00)
[2021-02-27] MEDS ORDERED: VITAMIN D3 25 MCG (1,000 UNITS) TABLET PO SCH (17:00)
[2021-02-27] MEDS ORDERED: ZINC SULFATE 220 MG CAPSULE PO SCH (17:00)
[2021-02-27] MEDS ORDERED: MAGNESIUM OXIDE (MAG-OX)400 MG TAB PO SCH (17:00)
[2021-02-27] MEDS ORDERED: RIVAROXABAN 20 MG TABLET (XARELTO) PO SCH (17:00)
[2021-02-27] MEDS ORDERED: CO ENZYME Q10 PO SCH (21:00)
[2021-02-27] MEDS: SIMvastatin 10 MG (ZOCOR) TAB PO SCH (21:12)
[2021-02-27 23:30] VITALS: BP 127/73
[2021-02-28] MEDS ORDERED: TROUGH ORDER-PHARMACY XX NR (03:00)
[2021-02-28] MEDS: VANCOMYCIN 1250 MG/NS 250 ML IVPB IV SCH ×2 (04:37)
--- NOTE | 2021-02-28 06:50 | Progress Note ---
Standard Progress Note Progress Notes/Assess & Plan Date Seen by a Provider: Feb 28, 2021 Time Seen by a Provider: 06:15 Progress/Assessment & Plan ENTDarren less pain/tenderness culture pending cont current antibiotics minimal drainage Nose-less swollen/tender diet as noris may restrt her xarelto tonight plan on 24 more hours of IV antibiotics and then home on oral antibiotics Natasha much improved no tenderness NOse-minimal swelling patient has antibiotics at home to take label and send home the bactroban with patient-use bid for ten days rtc-2 weeks no discharge prescriptions Final Diagnosis nasoseptal abscess MALATHI MONTEMAYOR MD Feb 28, 2021 06:50
[2021-02-28] MEDS ORDERED: RELABEL FOR HOME USE MC SCH (07:30)
[2021-02-28 07:51] VITALS: BP 114/76
[2021-02-28] MEDS: CALCIUM CARBONATE 600 MG (CALCARB) TAB PO SCH (08:45)
[2021-02-28] MEDS: MUPIROCIN 2% OINT 22 GM (BACTROBAN) TUBE TOP SCH (08:45)
[2021-02-28] MEDS: AMIODARONE 200 MG (CORDARONE) TAB PO SCH (08:45)
[2021-02-28] MEDS: ACETAMINOPHEN 325 MG TABLET PO PRN (08:46)
[2021-02-28 10:48] VITALS: BP 114/76
[2021-02-28] MEDS ORDERED: VANCOMYCIN 1 GM/NS 250 ML IVPB IV SCH ×2 (17:00)
== END 2021-02-28 10:48 | disposition home or self-care (01) ==
LOC: 4TH 13:26
PROVIDERS: ADMIT Otolaryngology Otolaryngology/Facial Plastic Surgery; ATTEND Otolaryngology Otolaryngology/Facial Plastic Surgery
DX: J34.0 Abscess, furuncle and carbuncle of nose (principal); E66.9 Obesity, unspecified; I48.91 Unspecified atrial fibrillation; Z79.01 Long term (current) use of anticoagulants; Z68.39 Body mass index [BMI] 39.0-39.9, adult
CPT/HCPCS: 36415; 80048; 80202; 85025; 87070; 87075; 87076; 87077; 87186; 87205; 93005